=== PATIENT | female | born 1975 | race Caucasian/White ===

== ENCOUNTER 2017-02-04 16:03 | Emergency (ER) | payer OTHER ==
[2017-02-04 16:27] LABS: BILIRUBIN NEGATIVE (NEGATIVE); BLOOD 2+ Ery/uL (NEGATIVE); CLARITY CLEAR (CLEAR); COLOR STRAW (YELLOW); GLUCOSE (U) NORMAL (NORMAL); KETONE (U) NEGATIVE (NEGATIVE); LEUKOCYTES TRACE Leu/uL (NEGATIVE); NITRITE NEGATIVE (NEGATIVE); PROTEIN NEGATIVE (NEGATIVE); SPECIFIC GRAVITY <=1.005 (1.001-1.030); UROBILINOGEN 0.2 mg/dL (0.2-1.0)
[2017-02-04 16:35] LABS: BACTERIA 2+
[2017-02-04 17:01] LABS: BASOPHIL 0.6 % (0-2); EOSINOPHIL 5.1 % (0-5); HCT 39.7 % (37.0-47.0); HGB 13.2 g/dl (12.5-16.0); LYMPHOCYTE 26.3 % (15-48); MCH 30.4 pg (25.0-31.0); MCHC 33.2 g/dL (32.0-36.0); MCV 91.5 fL (78.0-100.0); MONOCYTE 8.2 % (0-12); MPV 9.3 fL (6.0-9.5); NEUTROPHIL 59.8 % (41-80); PLT 282 K/uL (150-400); RBC 4.34 M/uL (4.20-5.40); RDW 14.4 % (11.5-14.0); WBC 7.1 K/uL (4.0-10.5)
[2017-02-04 17:12] LABS: ALBUMIN 3.9 g/dL (3.5-5.0); BILIRUBIN - TOTAL 0.2 mg/dL (0.1-1.0); CREATININE 0.7 mg/dL (0.5-1.0); GLOBULIN (CALCULATION) 2.9 g/dL (2.2-4.2); POTASSIUM 3.8 mmol/L (3.5-5.1); TOTAL PROTEIN 6.8 g/dL (6.4-8.3)
== END 2017-02-04 20:30 | disposition home or self-care (01) ==
LOC: FER 16:03
PROVIDERS: Internal Medicine; Physician Assistant Medical
DX: R11.2 Nausea with vomiting, unspecified (principal); K21.9 Gastro-esophageal reflux disease without esophagitis; J45.909 Unspecified asthma, uncomplicated; F32.9 Major depressive disorder, single episode, unspecified; F41.9 Anxiety disorder, unspecified; F17.210 Nicotine dependence, cigarettes, uncomplicated; Z98.890 Other specified postprocedural states; Z88.5 Allergy status to narcotic agent; Z79.899 Other long term (current) drug therapy; Z90.49 Acquired absence of other specified parts of digestive tract; Z98.51 Tubal ligation status
CPT/HCPCS: 36415; 80053; 81001; 82150; 83690; 85025; 87088; 87210; Q9967